=== PATIENT | female | born 1965 | race American Indian/Alaskan Native ===

== ENCOUNTER 2017-03-09 16:51 | Emergency (ER) | payer SELFPAY ==
[2017-03-09 18:48] LABS: Hematocrit 28.4 % (30.3-42.9); Hemoglobin 8.5 gm/dl (10.1-14.3); Mean Corpuscular HGB Conc 30 % (30-34); Mean Corpuscular Hemoglobin 24 pg (28-32); Mean Corpuscular Volume 81 fl (79-97); Platelet Count 242 K/mm3 (140-440); Red Cell Distribution Width 20.6 % (13.2-15.2)
[2017-03-09 19:04] LABS: Anion Gap 19 mmol/L; Blood Urea Nitrogen 4 mg/dL (7-17); Calcium 8.7 mg/dL (8.4-10.2); Carbon Dioxide 22 mmol/L (22-30); Chloride 102.8 mmol/L (98-107); Creatine Kinase 48 units/L (30-135); Glucose 66 mg/dL (65-100); Potassium 4.4 mmol/L (3.6-5.0); Sodium 139 mmol/L (137-145)
[2017-03-09 19:07] LABS: Creatine Kinase MB < 1.0 ng/mL (0.0-4.0)
[2017-03-09 19:31] LABS: Blastocytes % (Manual) 0 %; Eosinophils % (Manual) 0 % (0.0-4.3)
[2017-03-09 19:32] LABS: Anisocytosis 1+; Diff Status Complete; Hypochromasia 1+
[2017-03-09] MEDS ORDERED: MORPHINE IV ONE (22:08)
--- NOTE | 2017-03-09 22:12 | Emergency Department Report ---
HPI - General Chief Complaint: Syncope Time Seen by Provider: 03/09/17 21:58 - HPI HPI: This is a 51-year-old Afro-Mexican female presents to the emergency department from home with complaint of bilateral knee pain. The patient says that she had 2 syncopal episodes last week. The first one was when she was headed to the fridge and then woke up on the floor of the kitchen. The second time she was getting up from a table and woke up on the floor as well. She says that both times she thinks that she fell on her knees. Since that time he's had pain with the right greater than the left. She's been taking Aleve for her pain without much relief. She is able to ambulate but has to take baby steps and each time she walks the pain increases. She does not have a primary care physician. She denies any past medical history. She denies any chest pain, headache, vision change or any neurological deficits. No recent travel or sick contacts at home. ED Past Medical Hx - Past Medical History Hx Hypertension: Yes (NO MEDICATIONS) Hx Pulmonary Embolism: Yes (10 years ago) Additional medical history: Gastric bypass 2005 and developed a PE was on coumadin. But states no clots now - Surgical History Additional Surgical History: Gastric bypass. - Social History Smoking Status: Never Smoker Substance Use Type: Alcohol - Medications Home Medications: Home Medications Medication Instructions Recorded Confirmed Last Taken Type HYDROcodone/APAP 5-325 [Blum 1 each PO Q6HR PRN #12 tablet 03/10/17 Unknown Rx 5/325] ED Review of Systems ROS: Stated complaint: FALL / LT/RT KNEE PAIN/ Other details as noted in HPI Comment: All other systems reviewed and negative Constitutional: denies: chills, fever Eyes: denies: eye pain, eye discharge, vision change ENT: denies: ear pain, throat pain Respiratory: denies: cough, shortness of breath, wheezing Cardiovascular: syncope. denies: chest pain, palpitations Gastrointestinal: denies: abdominal pain, nausea, diarrhea Genitourinary: denies: urgency, dysuria, discharge Musculoskeletal: arthralgia. denies: back pain Skin: denies: rash, lesions Neurological: denies: headache, weakness, paresthesias Physical Exam - Physical Exam Vital Signs: Vital Signs 07/13/17 17:21 Temperature 97.4 F L Pulse Rate 99 H Respiratory 18 Rate Blood Pressure 144/91 O2 Sat by Pulse 98 Oximetry Physical Exam: GENERAL: The patient is well-developed well-nourished. HEENT: Normocephalic. Atraumatic. Extraocular motions are intact. Patient has moist mucous membranes. Pupils equal reactive to light bilaterally. No nystagmus. NECK: Supple. Trachea is midline. CHEST/LUNGS: Clear to auscultation. There is no respiratory distress noted. HEART/CARDIOVASCULAR: Regular. There is no tachycardia. There is no gallop rub or murmur. ABDOMEN: Abdomen is soft, nontender. Patient has normal bowel sounds. There is no abdominal distention. Obese habitus. SKIN: Skin is warm and dry. NEURO: The patient is awake, alert, and oriented. The patient is cooperative. The patient has no focal neurologic deficits. The patient has normal speech. MUSCULOSKELETAL: There is tenderness to palpation to the bilateral anterior knees. Negative anterior and posterior drawer test to the bilateral knees. No laxity with valgus or varus stress to the bilateral knees. There is no limitation range of motion. Neurovascularly intact. ED Course Vital Signs 03/09/17 17:21 Temperature 97.4 F L Pulse Rate 99 H Respiratory 18 Rate Blood Pressure 144/91 O2 Sat by Pulse 98 Oximetry ED Medical Decision Making - Lab Data Result diagrams: 03/09/17 18:15 03/09/17 18:15 - EKG Data -: EKG Interpreted by Me EKG shows normal: sinus rhythm, axis, intervals (prolonged MD interval intervening first-degree AV block), QRS complexes (Q waves to the anterior leads ), ST-T waves Rate: normal - EKG Data When compared to previous EKG there are: no significant change Interpretation: unchanged when compared t (08/12/2012) - Radiology Data Radiology results: report reviewed, image reviewed interpreted by me: X-ray of the bilateral knees shows severe degenerative joint disease and osteoarthritis CT of the head does not show any acute process including no hemorrhage, mass, shift, diffuse edema or skull fracture. - Medical Decision Making 51-year-old female presents to the emergency department with the complaint of bilateral knee pain and 2 episodes of syncope that occurred 1.5 weeks ago. On physical exam there is no focal, motor or sensory deficits in her cranial nerves are intact. EKG did not show any signs of ST elevation CA, ischemia or dysrhythmia. Labs are unremarkable and also do not show any etiology of the previous syncopal episodes. On physical exam the knees are tender to palpation but they do not appear unstable and there is no deformities. X-rays of the bilateral knee shows severe degenerative joint disease and osteoarthritis. She was given some pain medication and is feeling some improvement. The right knee was placed into a knee immobilizer and the left knee was placed into a Howard wrap. The patient was given crutches to help her with the weightbearing. She may need an MRI in the near future to rule out any tendon or ligament or meniscus damage as well as further evaluate her severe osteoarthritis. The patient was able to display the ability to ambulate within the emergency department using the Howard wrap, knee immobilizer and crutches. She was given pain medication for home and a referral for an orthopedist. She will return to the ER with any worsening of her symptoms or any acute distress. - Differential Diagnosis osteoarthritis, fracture, dislocation, tendon/ligament injury Critical Care Time: No Critical care attestation.: If time is entered above; I have spent that time in minutes in the direct care of this critically ill patient, excluding procedure time. ED Disposition Clinical Impression: Bilateral knee pain Qualifiers: Chronicity: acute Qualified Code(s): M25.561 - Pain in right knee Osteoarthritis of both knees Qualifiers: Osteoarthritis type: unspecified Qualified Code(s): M17.0 - Bilateral primary osteoarthritis of knee Syncope Qualifiers: Syncope type: unspecified Qualified Code(s): R55 - Syncope and collapse Disposition: DC-01 TO HOME OR SELFCARE Is pt being admited?: No Condition: Stable Instructions: Osteoarthritis (ED), Syncope (ED), Arthralgia (ED) Additional Instructions: Please follow-up with a orthopedist as soon as possible. I've given you a referral for a local orthopedist, Dr. Lau. I have also given you multiple referrals for primary care physicians. Return to the emergency department with any worsening of your symptoms or any acute distress. You've been prescribed a medication that is sedating. Therefore this medication cannot be mixed with alcohol, or taken prior to driving, working, or being responsible for children. Prescriptions: HYDROcodone/APAP 5-325 [Blum 5/325] 1 each PO Q6HR PRN #12 tablet PRN Reason: Pain Referrals: PRIMARY CARE, [Primary Care Provider] - 3-5 Days DEBORAH LO MD [Staff Physician] - 3-5 Days DANIELLE ANN MD [Staff Physician] - 3-5 Days JIMBO LAU MD [Staff Physician] - [facility] Forms: Work/School Release Form(ED) Time of Disposition: 00:31
[2017-03-09 22:17] VITALS: BP 133/46
--- NOTE | 2017-03-09 23:07 | Cat Scan Report ---
FINAL REPORT PROCEDURE: CT head without contrast. TECHNIQUE: Computerized tomography of the head was performed without contrast material. HISTORY: Syncope. COMPARISON: No prior studies are available for comparison. FINDINGS: The ventricles are normal in size. The blair matter and white matter appear normal. There are no mass lesions. There is no intracranial hemorrhage. There are no signs of acute infarction. The calvarium appears intact. The mastoid air cells and visualized paranasal sinuses are well aerated. IMPRESSION: Normal study.
--- NOTE | 2017-03-09 23:11 | XRay Report ---
FINAL REPORT PROCEDURE: Right and left knees. TECHNIQUE: Three views of each knee. HISTORY: Bilateral knee pain. COMPARISON: No prior studies are available for comparison. FINDINGS: Right knee: The bones appear intact without fracture or dislocation. There is moderate narrowing of the medial compartment of the knee joint. There is osteophyte formation in the distal femur and proximal tibia. There are some rounded calcifications posterior to the distal femur. These could represent synovial osteochondromas. There is no evidence of a knee effusion. Left knee: The bones appear intact without fracture or dislocation. There is severe narrowing of the medial compartment of the knee joint. There is prominent osteophyte formation in the distal femur and proximal tibia. The soft tissues are unremarkable. There is no evidence of a knee effusion. IMPRESSION: Bilateral osteoarthritis, left worse than right.
[2017-03-10] MEDS ORDERED: BENADRYL PO ONE ×2 (00:38→00:45)
== END 2017-03-10 01:00 | disposition home or self-care (01) ==
LOC: ED 16:51
DX: M17.0 Bilateral primary osteoarthritis of knee (principal); R55 Syncope and collapse; I10 Essential (primary) hypertension; I26.99 Other pulmonary embolism without acute cor pulmonale; W01.0XXA Fall on same level from slipping, tripping and stumbling without subsequent striking against object, initial encounter; Y93.89 Activity, other specified; Y99.8 Other external cause status; Y92.090 Kitchen in other non-institutional residence as the place of occurrence of the external cause
CPT/HCPCS: 29505; 36415; 70450; 73562; 80048; 82550; 82553; 83735; 84443; 84484; 85007; 85025; 93005; 93010; 96374; 99285; J2270

== ENCOUNTER 2018-03-08 15:02 | Inpatient (IN) | payer OTHER ==
[2018-03-08 16:11] LABS: Hemoglobin 6.7 gm/dl (10.1-14.3); Mean Corpuscular HGB Conc 30 % (30-34); Mean Corpuscular Volume 72 fl (79-97); Platelet Count 202 K/mm3 (140-440); Red Blood Count 3.05 M/mm3 (3.65-5.03)
[2018-03-08 16:13] LABS: Mean Corpuscular Hemoglobin 22 pg (28-32); Red Cell Distribution Width 21.5 % (13.2-15.2)
[2018-03-08 16:19] LABS: Eosinophils % (Auto) 1.9 % (0.0-4.3); Lymphocytes % (Auto) 43.3 % (13.4-35.0); Monocytes % (Auto) 11.3 % (0.0-7.3)
[2018-03-08 16:20] LABS: Basophils # (Auto) 0.1 K/mm3 (0.0-0.1); Basophils % (Auto) 1.7 % (0.0-1.8); Eosinophils # (Auto) 0.1 K/mm3 (0.0-0.4); Lymphocytes # (Auto) 1.7 K/mm3 (1.2-5.4); Monocytes # (Auto) 0.4 K/mm3 (0.0-0.8)
[2018-03-08 16:25] LABS: BUN/Creatinine Ratio 6; Blood Urea Nitrogen 3 mg/dL (7-17); Calcium 8.5 mg/dL (8.4-10.2); Hemolysis Index 0
[2018-03-08] MEDS ORDERED: NACL 0.9% 500 ML 500 ML IV ONE (16:25)
--- NOTE | 2018-03-08 16:25 | Emergency Department Report ---
Blank Doc - Documentation Documentation: Patient is 52 years old female with history of gastric bypass surgery in 2006 and pulmonary embolism. Patient presented to the ER complaining off generalized swelling, weakness and shortness of breath for the last 4 weeks. Patient stated that she had to quit her job recently because she cannot handle it anymore. Patient denied any chest pain, fever or cough. Patient is found to have a hemoglobin of 6.7. Patient will be best served in our main ED.
[2018-03-08 16:52] LABS: INR 1.08 (0.87-1.13); Partial Thromboplastin Time 33.6 Sec. (24.2-36.6)
[2018-03-08] MEDS ORDERED: SUBLIMAZE IV ONE (16:57)
--- NOTE | 2018-03-08 16:57 | Emergency Department Report ---
ED General Adult HPI - General Chief complaint: Extremity Injury, Lower Stated complaint: LEG SWELLING/PAIN Time Seen by Provider: 03/08/18 16:16 Source: patient, RN notes reviewed, old records reviewed Mode of arrival: Wheelchair Limitations: Physical Limitation - History of Present Illness Initial comments: This is a 52-year-old female, previously evaluated by me. Reports a history of gastric bypass, and pulmonary embolus. She has not followed up with her bariatric surgeon in over 2 years, and discontinued herself from iron sulfate supplementation secondary to constipation and also discontinued herself from multivitamin supplementation. She presents to the ER with a complaint of acute on chronic nontraumatic right-sided knee pain, bilateral lower extremity discoloration and swelling, shortness of breath and fatigue and malaise. She denies hematemesis and bright red blood per rectum. She denies menstruation over the past 2 years. She denies being . She reports stools are beige colored. The right knee pain is sharp and achy, does not radiate anywhere, increases with palpation and decreases with rest. The lower extremity swelling is nontraumatic does not radiate anywhere, does not appear to have exacerbating or relieving factors. The shortness of breath is nontraumatic, worsens with exertion, decreases with rest, and does not radiate anywhere. -: Gradual Location: right, lower extremity Radiation: non-radiation Quality: aching Consistency: intermittent Improves with: rest Worsens with: movement Associated Symptoms: malaise, shortness of breath, weakness. denies: confusion , chest pain, cough, diaphoresis, fever/chills, loss of appetite, nausea/ vomiting, rash, seizure, syncope - Related Data Previous Rx's Medication Instructions Recorded Last Taken Type HYDROcodone/APAP 5-325 [[place] 1 each PO Q6HR PRN #12 tablet 03/10/17 Unknown Rx 5/325] Allergies Allergy/AdvReac Type Severity Reaction Status Date / Time No Known Allergies Allergy Verified 03/09/17 17:19 ED Review of Systems ROS: Stated complaint: LEG SWELLING/PAIN Other details as noted in HPI Comment: All other systems reviewed and negative ED Past Medical Hx - Past Medical History Previous Medical History?: Yes Hx Hypertension: Yes (NO MEDICATIONS) Hx Pulmonary Embolism: Yes (10 years ago) Additional medical history: Gastric bypass 2005 and developed a PE was on coumadin. But states no clots now - Surgical History Past Surgical History?: Yes Additional Surgical History: Gastric bypass. - Social History Smoking Status: Never Smoker Substance Use Type: Alcohol, Prescribed - Medications Home Medications: Home Medications Medication Instructions Recorded Confirmed Last Taken Type HYDROcodone/APAP 5-325 [[place] 1 each PO Q6HR PRN #12 tablet 03/10/17 Unknown Rx 5/325] ED Physical Exam - General Limitations: No Limitations, Physical Limitation General appearance: alert, in no apparent distress, obese - Head Head exam: Present: atraumatic, normocephalic - Eye Eye exam: Present: normal appearance, EOMI - ENT ENT exam: Present: normal exam, normal orophraynx, mucous membranes moist, normal external ear exam - Neck Neck exam: Present: normal inspection, full ROM - Respiratory Respiratory exam: Present: normal lung sounds bilaterally. Absent: respiratory distress - Cardiovascular Cardiovascular Exam: Present: regular rate, normal rhythm. Absent: systolic murmur, diastolic murmur, rubs, gallop - GI/Abdominal GI/Abdominal exam: Present: soft, normal bowel sounds. Absent: distended, tenderness, guarding, rebound, rigid, pulsatile mass - Rectal Rectal exam: Present: normal inspection, normal rectal tone, heme (+) stool, other (escorted by nurse Jovita) - Extremities Exam Extremities exam: Present: normal inspection, full ROM, tenderness (there is reproducible right anterior knee tenderness, and right lateral knee tenderness on the lateral joint line and medial joint line. There is no laxity.), pedal edema, calf tenderness, other (2+ pulses noted in the bilateral upper, lower extremities. Compartments soft. Pelvis is stable.) - Back Exam Back exam: Present: normal inspection, full ROM. Absent: tenderness, CVA tenderness (R), paraspinal tenderness, vertebral tenderness - Neurological Exam Neurological exam: Present: alert, oriented X3, CN II-XII intact, other ( Extraocular movements intact. Tongue midline. No facial droop. Facial sensation intact to light touch in the V1, V2, V3 distribution bilaterally. 5 and 5 strength in 4 extremities.. Sensation is intact to light touch in 4 extremities.). Absent: motor sensory deficit - Psychiatric Psychiatric exam: Present: normal affect, normal mood - Skin Skin exam: Present: warm, dry, intact, normal color. Absent: rash ED Course Vital Signs 03/08/18 03/08/18 03/08/18 15:07 18:13 19:15 Temperature 97.8 F 97.7 F Pulse Rate 92 H 87 89 Respiratory 20 19 20 Rate Blood Pressure 125/72 Blood Pressure 126/74 114/66 [Right] O2 Sat by Pulse 97 99 99 Oximetry - Reevaluation(s) Reevaluation #1: 03/08/18 19:16 discussed with gastroenterology, Dr. Tian Ferreira, recommends nothing by mouth after midnight, indicates his group will see the patient in consultation tomorrow. ED Medical Decision Making - Lab Data Result diagrams: 03/08/18 15:38 03/08/18 15:38 Vital Signs 03/08/18 03/08/18 15:07 18:13 Temperature 97.8 F Pulse Rate 92 H 87 Respiratory 20 19 Rate Blood Pressure 125/72 Blood Pressure 126/74 [Right] O2 Sat by Pulse 97 99 Oximetry Lab Results 03/08/18 03/08/18 03/08/18 Range/Units 15:38 15:38 15:38 WBC 3.9 L (4.5-11.0) K/mm3 RBC 3.05 L (3.65-5.03) M/mm3 Hgb 6.7 L (10.1-14.3) gm/dl Hct 22.0 L (30.3-42.9) % MCV 72 L (79-97) fl MCH 22 L (28-32) pg MCHC 30 (30-34) % RDW 21.5 H (13.2-15.2) % Plt Count 202 (140-440) K/mm3 Lymph % (Auto) 43.3 H (13.4-35.0) % [place] % (Auto) 11.3 H (0.0-7.3) % Eos % (Auto) 1.9 (0.0-4.3) % Baso % (Auto) 1.7 (0.0-1.8) % Lymph # 1.7 (1.2-5.4) K/mm3 [place] # 0.4 (0.0-0.8) K/mm3 Eos # 0.1 (0.0-0.4) K/mm3 Baso # 0.1 (0.0-0.1) K/mm3 Seg Neutrophils % 41.8 (40.0-70.0) % Seg Neutrophils # 1.6 L (1.8-7.7) K/mm3 PT (12.2-14.9) Sec. INR (0.87-1.13) APTT (24.2-36.6) Sec. D-Dimer (0-234) ng/mlDDU Sodium 138 (137-145) mmol/L Potassium 4.0 (3.6-5.0) mmol/L Chloride 101.7 (98-107) mmol/L Carbon Dioxide 23 (22-30) mmol/L Anion Gap 17 mmol/L BUN 3 L (7-17) mg/dL Creatinine 0.5 L (0.7-1.2) mg/dL Estimated GFR > 60 ml/min BUN/Creatinine Ratio 6 % Glucose 95 (65-100) mg/dL Calcium 8.5 (8.4-10.2) mg/dL Troponin T < 0.010 (0.00-0.029) ng/mL NT-Pro-B Natriuret Pep 127.1 (0-900) pg/mL Blood Type Antibody Screen Crossmatch 03/08/18 03/08/18 03/08/18 Range/Units 15:38 16:29 16:36 WBC (4.5-11.0) K/mm3 RBC (3.65-5.03) M/mm3 Hgb (10.1-14.3) gm/dl Hct (30.3-42.9) % MCV (79-97) fl MCH (28-32) pg MCHC (30-34) % RDW (13.2-15.2) % Plt Count (140-440) K/mm3 Lymph % (Auto) (13.4-35.0) % [place] % (Auto) (0.0-7.3) % Eos % (Auto) (0.0-4.3) % Baso % (Auto) (0.0-1.8) % Lymph # (1.2-5.4) K/mm3 [place] # (0.0-0.8) K/mm3 Eos # (0.0-0.4) K/mm3 Baso # (0.0-0.1) K/mm3 Seg Neutrophils % (40.0-70.0) % Seg Neutrophils # (1.8-7.7) K/mm3 PT 14.6 (12.2-14.9) Sec. INR 1.08 (0.87-1.13) APTT 33.6 (24.2-36.6) Sec. D-Dimer 404.22 H (0-234) ng/mlDDU Sodium (137-145) mmol/L Potassium (3.6-5.0) mmol/L Chloride (98-107) mmol/L Carbon Dioxide (22-30) mmol/L Anion Gap mmol/L BUN (7-17) mg/dL Creatinine (0.7-1.2) mg/dL Estimated GFR ml/min BUN/Creatinine Ratio % Glucose (65-100) mg/dL Calcium (8.4-10.2) mg/dL Troponin T (0.00-0.029) ng/mL NT-Pro-B Natriuret Pep (0-900) pg/mL Blood Type A POSITIVE Antibody Screen Negative Crossmatch See Detail - EKG Data -: EKG Interpreted by Tn EKG shows normal: sinus rhythm - EKG Data 03/08/18 19:03 Sinus 93 beats per minute, normal axis, borderline prolonged AK interval, poor R -wave progression, motion artifact, not a STEMI, unchanged from prior from February 2017 - Radiology Data Radiology results: report reviewed, image reviewed LIVE [facility] OCTAVIO BACA [facility] 1965 [id number] 03/08/18 17:43 - Radiology Dept. Note by MINI CLEMENTE [facility] Num: [id number] : 1965 Patient Age: 52 BLE VENOUS DUPLEX COMPLETED. VAS LAB PRELIMINARY REPORT; NO EVIDENCE OF DVT/SVT NOTED IN VESSELS/SEGMENTS EXAMINED, BLE. BLE SOFT TISSUE CHANGES NOTED IN POP FOSSA. PHYSICIANS REPORT TO FOLLOW...(rSK) Initialized on 03/08/18 17:43 - END OF NOTE - Medical Decision Making Differential diagnosis, including but not limited to: Symptomatic anemia secondary to NSAID use secondary to chronic right-sided knee pain, DVT, pulmonary embolus Assessment and plan: 52-year-old female who endorses chronic NSAID use for chronic right knee pain, found to be symptomatically anemic with hemoglobin of 6.7, strongly guaiac positive stool, negative lower extremity DVT study, CT scan of the chest is pending, with no chest pain. Patient will be given Protonix and packed red blood cell transfusion. Hasn't had a colonoscopy within the past 10 years. Gastroenterology is paged. Dr. Turk, the hospital physician accepted the patient to the medical service for symptomatic anemia requiring packed red blood cell transfusion, and presumed GI bleed. Critical care time in (mins) excluding proc time.: 35 Critical care attestation.: If time is entered above; I have spent that time in minutes in the direct care of this critically ill patient, excluding procedure time. ED Disposition Clinical Impression: GI bleed, Symptomatic anemia, Arthritis of right knee Disposition: OP ADMIT IP TO THIS HOSP Is pt being admited?: Yes Condition: Good
--- NOTE | 2018-03-08 17:05 | XRay Report ---
FINAL REPORT PROCEDURE: Right knee. TECHNIQUE: Three views. HISTORY: Knee pain. COMPARISON: Bilateral knees 03/09/2017. FINDINGS: The bones appear intact without fracture or dislocation. There is severe narrowing of the medial compartment of the knee joint. Bone is touching bone. There is osteophyte formation. The soft tissues are unremarkable. There is no evidence of a knee effusion. There are some ovoid calcifications behind the knee joint which may represent synovial osteochondromas. IMPRESSION: Severe osteoarthritis, progressed since 2016.
--- NOTE | 2018-03-08 17:20 | XRay Report ---
FINAL REPORT PROCEDURE: Chest. TECHNIQUE: PA and lateral views. HISTORY: Shortness of breath . COMPARISON: No prior studies are available for comparison. FINDINGS: The heart and mediastinum appear normal. The lungs are clear and well expanded. There are no pleural effusions. The soft tissues and regional skeleton are unremarkable. IMPRESSION: Normal study.
[2018-03-08] MEDS ORDERED: PROTONIX IV ONE (18:54)
--- NOTE | 2018-03-08 19:03 | History and Physical Report ---
History of Present Illness Chief complaint: I feel weak, my knees hurt History of present illness: 52 YO Female with HTN, Obesity, History of PE (10 years ago), Noncompliant with Iron replacement therapy, presents to ED. Pt states that she has experienced right knee pain over the past 6 months, as well as generalized weakness over the past 1 month. Pt seen and evaluated in ED and found to have evidence of GI bleeding with blood loss anemia, as well as obesity hypoventilation. GI consulted in ED. Pt admitted to medical floor. Pt denies fever, chills, CP, Palpitations, NVD, syncope, hemoptysis, unintentional weight loss, unilateral leg swelling, calf pain. Pt acknowledges daily NSAID use. Pt lost to outpatient f/u with bariatric surgeon. Pt admitted to medical floor. GI consulted in ED. Past History Past Medical History: hypertension, pulmonary embolism Past Surgical History: Other (gastric bypass) Social history: single Family history: hypertension Medications and Allergies Allergies Allergy/AdvReac Type Severity Reaction Status Date / Time No Known Allergies Allergy Verified 03/09/17 17:19 Home Medications Medication Instructions Recorded Confirmed Last Taken Type HYDROcodone/APAP 5-325 [[place] 1 each PO Q6HR PRN #12 tablet 03/10/17 Unknown Rx 5/325] Review of Systems Constitutional: weakness, malaise, no weight loss, no weight gain, no fever, no chills Ears, nose, mouth and throat: no ear pain, no ear discharge, no tinnitis, no decreased hearing, no nose pain Breasts: no change in shape, no swelling, no mass Cardiovascular: no chest pain, no orthopnea, no palpitations, no edema, no syncope Respiratory: no cough, no cough with sputum, no excessive sputum, no shortness of breath Gastrointestinal: no nausea, no vomiting, no diarrhea, no constipation, no change in bowel habits Genitourinary Female: no pelvic pain, no flank pain, no menorrhagia, no stress incontinence, no post void dribbling, no incomplete emptying, no urge incontinence Rectal: no pain, no incontinence, no bleeding Musculoskeletal: no neck stiffness, no neck pain, no shooting arm pain, no arm numbness/tingling, no low back pain, no shooting leg pain, no leg numbness/ tingling Integumentary: no rash, no pruritis, no redness, no sores, no wounds Neurological: weakness, no tingling, no seizures, no syncope, no tremors, no ataxia, no lack of coordination Psychiatric: no anxiety, no memory loss, no change in sleep habits, no sleep disturbances, no insomnia, no hypersomnia Endocrine: no cold intolerance, no heat intolerance, no polyphagia, no excessive thirst Hematologic/Lymphatic: no easy bruising, no easy bleeding, no lymphadenopathy, no lymphedema Allergic/Immunologic: no urticaria, no allergic rhinitis, no wheezing, no persistent infections, no anaphylaxis, no angioedema Exam - Constitutional Vitals: Temp Pulse Resp BP Pulse Ox 97.8 F 87 19 126/74 99 03/08/18 15:07 03/08/18 18:13 03/08/18 18:13 03/08/18 18:13 03/08/18 18:13 General appearance: Present: mild distress, obese - EENT Eyes: Present: PERRL ENT: hearing intact, clear oral mucosa - Neck Neck: Present: supple, normal ROM - Respiratory Respiratory effort: normal Respiratory: bilateral: CTA - Cardiovascular Heart Sounds: Present: S1 & S2. Absent: rub, click - Extremities Extremities: pulses symmetrical, No edema Peripheral Pulses: within normal limits - Abdominal General gastrointestinal: Present: soft, non-tender, non-distended, normal bowel sounds Female genitourinary: Present: normal - Integumentary Integumentary: Present: clear, warm, dry - Musculoskeletal Musculoskeletal: gait normal, strength equal bilaterally - Psychiatric Psychiatric: appropriate mood/affect, intact judgment & insight - Neurologic Neurologic: CNII-XII intact, moves all extremities Results - Labs CBC & Chem 7: 03/08/18 15:38 03/08/18 15:38 Labs: Abnormal lab results 03/08/18 03/08/18 03/08/18 Range/Units 15:38 15:38 15:38 WBC 3.9 L (4.5-11.0) K/mm3 RBC 3.05 L (3.65-5.03) M/mm3 Hgb 6.7 L (10.1-14.3) gm/dl Hct 22.0 L (30.3-42.9) % MCV 72 L (79-97) fl MCH 22 L (28-32) pg RDW 21.5 H (13.2-15.2) % Lymph % (Auto) 43.3 H (13.4-35.0) % [place] % (Auto) 11.3 H (0.0-7.3) % Seg Neutrophils # 1.6 L (1.8-7.7) K/mm3 D-Dimer 404.22 H (0-234) ng/mlDDU BUN 3 L (7-17) mg/dL Creatinine 0.5 L (0.7-1.2) mg/dL Crossmatch 03/08/18 Range/Units 16:36 WBC (4.5-11.0) K/mm3 RBC (3.65-5.03) M/mm3 Hgb (10.1-14.3) gm/dl Hct (30.3-42.9) % MCV (79-97) fl MCH (28-32) pg RDW (13.2-15.2) % Lymph % (Auto) (13.4-35.0) % [place] % (Auto) (0.0-7.3) % Seg Neutrophils # (1.8-7.7) K/mm3 D-Dimer (0-234) ng/mlDDU BUN (7-17) mg/dL Creatinine (0.7-1.2) mg/dL Crossmatch See Detail Assessment and Plan - Patient Problems (1) GI bleed Current Visit: Yes Status: Acute Qualifiers: GI bleed type/associated pathology: anorectal hemorrhage Qualified Code(s) : K62.5 - Hemorrhage of anus and rectum Plan to address problem: PRBC Transfusion, PPI therapy, GI consulted for further evaluation, serial cbc, supportive care. (2) Obesity hypoventilation syndrome Current Visit: Yes Status: Acute Plan to address problem: supplemental oxygen, nebulizer therapy, NIPPV as clinically indicated, ambulate TID and prn (3) Symptomatic anemia Current Visit: Yes Status: Acute Plan to address problem: PRBC transfusion, monitor hgb, iron replacement therapy (4) DVT prophylaxis Current Visit: Yes Status: Acute Plan to address problem: SCD to ble while in bed.
[2018-03-08] MEDS ORDERED: PROVENTIL IH PRN (19:07)
[2018-03-08] MEDS ORDERED: ZOFRAN IV PRN (19:07)
[2018-03-08] MEDS ORDERED: SODIUM CHLORIDE FLUSH SYRINGE 10 ML IV PRN (19:07)
--- NOTE | 2018-03-08 20:23 | Cat Scan Report ---
FINAL REPORT PROCEDURE: CT angiogram chest with contrast. TECHNIQUE: Computerized tomographic angiography of the chest was performed after the IV injection of iodinated nonionic contrast including image processing. The image data was postprocessed using 2-dimensional multiplanar reformatted (MPR) and 3-dimensional (MIP and/or volume rendered) techniques. HISTORY: Dyspnea. COMPARISON: No prior studies are available for comparison. FINDINGS: The trachea and central bronchi appear normal. The left lung is clear and well expanded. There is a tiny nodule in the right lower lobe contiguous with the major fissure. This is seen on image 65 of series 2. This nodule is not highly suspicious and measures only 4.3 millimeters in maximum dimension. A follow-up study could be done to look for stability or resolution. The thoracic aorta has a normal caliber without evidence of dissection. The pulmonary arteries enhance normally. There are no filling defects to suggest pulmonary embolism. There is no mediastinal adenopathy. The heart size is normal. There are no pleural effusions. The adrenal glands are not enlarged. The thoracic skeleton appears intact. IMPRESSION: No evidence of pulmonary embolism. Tiny nodule in the right lower lobe.
[2018-03-08] MEDS: PROTONIX IV SCH (22:35)
[2018-03-08] MEDS: SODIUM CHLORIDE FLUSH SYRINGE 10 ML IV SCH (22:36)
[2018-03-08] MEDS ORDERED: NACL 0.9% 500 ML 500 ML ONE (23:33)
[2018-03-08] MEDS: BENADRYL IV PRN (23:51)
[2018-03-09] MEDS: TYLENOL PO PRN (07:56)
[2018-03-09] MEDS: BENADRYL IV PRN ×2 (07:56→17:04)
[2018-03-09 09:05] LABS: Hematocrit 23.8 % (30.3-42.9); Hemoglobin 7.3 gm/dl (10.1-14.3); Mean Corpuscular HGB Conc 31 % (30-34); Mean Corpuscular Hemoglobin 23 pg (28-32); Mean Corpuscular Volume 74 fl (79-97); Platelet Count 154 K/mm3 (140-440); Red Blood Count 3.22 M/mm3 (3.65-5.03); Red Cell Distribution Width 22.1 % (13.2-15.2)
--- NOTE | 2018-03-09 09:11 | Gastroenterology Consultation ---
<HALINA CARRILLO - Last Filed: 03/09/18 09:13> History of Present Illness - Reason for Consult Consult date: 03/09/18 anemia Requesting physician: TIMMY CALI - History of Present Illness Patient is a 52 y/o female with PMH of HTN, morbid obesity, h/o PE several years ago (not on anticoagulation currently), s/p gastric bypass (2005), and medication non-compliance (took self off iron supplement and daily MVI due to constipation with no f/u with bariatric surgeon in 2 years) who presented to ED with c/o right knee pain associated with arthritis, discoloration/swelling of BLE, SOB, and generalized weakness/fatigue. Lower extremity DVT study negative. Chest CTA negative for PE. She was found to be anemic upon admission with H/H 6.7/22.0 with stool occult positive to which GI has been consulted. This morning patient was resting in bed w/o acute distress. SOB improved. No hematemesis, melena, or hematochezia. Last BM yesterday with brown stool. Admits to regurgitation of food after meals since gastric bypass but denies wt loss, CP, dizziness, abd pain, N/V, dysphagia, odynophagia, diarrhea, or constipation. Takes Aleve and Ibuprofen daily. No known hx of PUD. She is unsure if she has ever had an EGD, but is sure she has not undergone one since 2005. No previous colonoscopy. No Fhx of GI cancers. No menstruation over the past 2 years. Past History Past Medical History: hypertension, pulmonary embolism, other (morbid obesity) Past Surgical History: Other (gastric bypass) Social history: single Family history: hypertension Medications and Allergies Allergies Allergy/AdvReac Type Severity Reaction Status Date / Time No Known Allergies Allergy Verified 03/09/17 17:19 Home Medications Medication Instructions Recorded Confirmed Last Taken Type HYDROcodone/APAP 5-325 [[place] 1 each PO Q6HR PRN #12 tablet 03/10/17 Unknown Rx 5/325] Active Meds: Active Medications Acetaminophen (Tylenol) 650 mg PO Q4H PRN PRN Reason: Pain MILD(1-3)/Fever >100.5/JAVED Last Admin: 03/09/18 07:56 Dose: 650 mg Albuterol (Proventil) 2.5 mg IH Q4HRT PRN PRN Reason: Shortness Of Breath Diphenhydramine HCl (Benadryl) 25 mg IV Q6H PRN PRN Reason: Itching Last Admin: 03/09/18 07:56 Dose: 25 mg Ferrous Sulfate (Feosol) 325 mg PO BID [facility] Ondansetron HCl (Zofran) 4 mg IV Q8H PRN PRN Reason: Nausea And Vomiting Pantoprazole Sodium (Protonix) 40 mg IV BID [facility] Last Admin: 03/08/18 22:35 Dose: 40 mg Sodium Chloride (Sodium Chloride Flush Syringe 10 Ml) 10 ml IV BID [facility] Last Admin: 03/08/18 22:36 Dose: 10 ml Sodium Chloride (Sodium Chloride Flush Syringe 10 Ml) 10 ml IV PRN PRN PRN Reason: LINE FLUSH Review of Systems - Review of Systems All systems: negative Constitutional: weakness Musculoskeletal: other (right knee pain) Exam - Constitutional Vital Signs: Temp Pulse Resp BP Pulse Ox 98.5 F 89 18 154/89 99 03/09/18 02:55 03/09/18 02:55 03/09/18 02:55 03/09/18 02:55 03/09/18 02:55 General appearance: no acute distress, obese (morbid) - EENT Eyes: PERRL, EOM intact ENT: hearing intact - Respiratory Respiratory: bilateral: CTA (anterior) - Cardiovascular Rhythm: regular Heart Sounds: Present: S1 & S2 - Gastrointestinal General gastrointestinal: Present: soft, non-tender, non-distended, normal bowel sounds, other (obese) - Integumentary Integumentary: Present: warm, dry - Neurologic Neurological: alert and oriented x3 - Labs CBC & Chem 7: 03/09/18 08:33 03/08/18 15:38 Lab Results: Laboratory Results - last 24 hr 03/08/18 03/08/18 03/08/18 15:38 15:38 15:38 WBC 3.9 L RBC 3.05 L Hgb 6.7 L Hct 22.0 L MCV 72 L MCH 22 L MCHC 30 RDW 21.5 H Plt Count 202 Lymph % (Auto) 43.3 H [place] % (Auto) 11.3 H Eos % (Auto) 1.9 Baso % (Auto) 1.7 Lymph # 1.7 [place] # 0.4 Eos # 0.1 Baso # 0.1 Seg Neutrophils % 41.8 Seg Neutrophils # 1.6 L PT INR APTT D-Dimer Sodium 138 Potassium 4.0 Chloride 101.7 Carbon Dioxide 23 Anion Gap 17 BUN 3 L Creatinine 0.5 L Estimated GFR > 60 BUN/Creatinine Ratio 6 Glucose 95 Calcium 8.5 Troponin T < 0.010 NT-Pro-B Natriuret Pep 127.1 Blood Type Antibody Screen Crossmatch 03/08/18 03/08/18 03/08/18 15:38 16:29 16:36 WBC RBC Hgb Hct MCV MCH MCHC RDW Plt Count Lymph % (Auto) [place] % (Auto) Eos % (Auto) Baso % (Auto) Lymph # [place] # Eos # Baso # Seg Neutrophils % Seg Neutrophils # PT 14.6 INR 1.08 APTT 33.6 D-Dimer 404.22 H Sodium Potassium Chloride Carbon Dioxide Anion Gap BUN Creatinine Estimated GFR BUN/Creatinine Ratio Glucose Calcium Troponin T NT-Pro-B Natriuret Pep Blood Type A POSITIVE Antibody Screen Negative Crossmatch See Detail 03/09/18 08:33 WBC 4.5 RBC 3.22 L Hgb 7.3 L Hct 23.8 L MCV 74 L MCH 23 L MCHC 31 RDW 22.1 H Plt Count 154 Lymph % (Auto) [place] % (Auto) Eos % (Auto) Baso % (Auto) Lymph # [place] # Eos # Baso # Seg Neutrophils % Seg Neutrophils # PT INR APTT D-Dimer Sodium Potassium Chloride Carbon Dioxide Anion Gap BUN Creatinine Estimated GFR BUN/Creatinine Ratio Glucose Calcium Troponin T NT-Pro-B Natriuret Pep Blood Type Antibody Screen Crossmatch Assessment and Plan 1.anemia 2.h/o gastric bypass -stool occult positive -INR 1.08 -HGB 7.3-s/p transfusion 1 unit PRBCs -continue to monitor H/H and transfuse as needed -hold blood thinning medications -no active signs of bleeding-HD stable -etiology unclear -will schedule for EGD/colonoscopy for further evaluation in am -clear liquids today then NPO after MN -iron studies in am -continue PPI and supportive care -will follow <KAELA CHIRINOS - Last Filed: 03/09/18 10:59> Medications and Allergies Active Meds: Active Medications Acetaminophen (Tylenol) 650 mg PO Q4H PRN PRN Reason: Pain MILD(1-3)/Fever >100.5/JAVED Last Admin: 03/09/18 07:56 Dose: 650 mg Albuterol (Proventil) 2.5 mg IH Q4HRT PRN PRN Reason: Shortness Of Breath Diphenhydramine HCl (Benadryl) 25 mg IV Q6H PRN PRN Reason: Itching Last Admin: 03/09/18 07:56 Dose: 25 mg Ferrous Sulfate (Feosol) 325 mg PO BID [facility] Last Admin: 03/09/18 09:54 Dose: 325 mg Ondansetron HCl (Zofran) 4 mg IV Q8H PRN PRN Reason: Nausea And Vomiting Pantoprazole Sodium (Protonix) 40 mg IV BID [facility] Last Admin: 03/09/18 09:55 Dose: 40 mg Sodium Chloride (Sodium Chloride Flush Syringe 10 Ml) 10 ml IV BID [facility] Last Admin: 03/09/18 09:55 Dose: 10 ml Sodium Chloride (Sodium Chloride Flush Syringe 10 Ml) 10 ml IV PRN PRN PRN Reason: LINE FLUSH Exam - Constitutional Vital Signs: Temp Pulse Resp BP Pulse Ox 98.5 F 89 18 154/89 99 03/09/18 02:55 03/09/18 02:55 03/09/18 02:55 03/09/18 02:55 03/09/18 02:55 - Labs CBC & Chem 7: 03/09/18 08:33 03/08/18 15:38 Lab Results: Laboratory Results - last 24 hr 03/08/18 03/08/18 03/08/18 15:38 15:38 15:38 WBC 3.9 L RBC 3.05 L Hgb 6.7 L Hct 22.0 L MCV 72 L MCH 22 L MCHC 30 RDW 21.5 H Plt Count 202 Lymph % (Auto) 43.3 H [place] % (Auto) 11.3 H Eos % (Auto) 1.9 Baso % (Auto) 1.7 Lymph # 1.7 [place] # 0.4 Eos # 0.1 Baso # 0.1 Seg Neutrophils % 41.8 Seg Neutrophils # 1.6 L PT INR APTT D-Dimer Sodium 138 Potassium 4.0 Chloride 101.7 Carbon Dioxide 23 Anion Gap 17 BUN 3 L Creatinine 0.5 L Estimated GFR > 60 BUN/Creatinine Ratio 6 Glucose 95 Calcium 8.5 Troponin T < 0.010 NT-Pro-B Natriuret Pep 127.1 Blood Type Antibody Screen Crossmatch 03/08/18 03/08/18 03/08/18 15:38 16:29 16:36 WBC RBC Hgb Hct MCV MCH MCHC RDW Plt Count Lymph % (Auto) [place] % (Auto) Eos % (Auto) Baso % (Auto) Lymph # [place] # Eos # Baso # Seg Neutrophils % Seg Neutrophils # PT 14.6 INR 1.08 APTT 33.6 D-Dimer 404.22 H Sodium Potassium Chloride Carbon Dioxide Anion Gap BUN Creatinine Estimated GFR BUN/Creatinine Ratio Glucose Calcium Troponin T NT-Pro-B Natriuret Pep Blood Type A POSITIVE Antibody Screen Negative Crossmatch See Detail 03/09/18 08:33 WBC 4.5 RBC 3.22 L Hgb 7.3 L Hct 23.8 L MCV 74 L MCH 23 L MCHC 31 RDW 22.1 H Plt Count 154 Lymph % (Auto) [place] % (Auto) Eos % (Auto) Baso % (Auto) Lymph # [place] # Eos # Baso # Seg Neutrophils % Seg Neutrophils # PT INR APTT D-Dimer Sodium Potassium Chloride Carbon Dioxide Anion Gap BUN Creatinine Estimated GFR BUN/Creatinine Ratio Glucose Calcium Troponin T NT-Pro-B Natriuret Pep Blood Type Antibody Screen Crossmatch Impression/Plan - Impression Impression: The patient was seen and examined personally. The GI care plan as outlined above by Halina Carrillo NP was discussed with patient. EGD and colonoscopy tomorrow.
[2018-03-09] MEDS ORDERED: GOLYTELY PO ONE (09:27)
[2018-03-09] MEDS: FEOSOL PO SCH ×2 (09:54→22:23)
[2018-03-09] MEDS: SODIUM CHLORIDE FLUSH SYRINGE 10 ML IV SCH ×2 (09:55→22:23)
[2018-03-09] MEDS: PROTONIX IV SCH ×2 (09:55→22:23)
[2018-03-09] MEDS ORDERED: VISTARIL PO PRN (12:11)
--- NOTE | 2018-03-09 14:32 | Progress Note ---
Assessment and Plan /GI bleed Status post 1 unit PRBC Transfusion, Continue PPI therapy, serial cbc, supportive care. GI consulted for further evaluation, Plan for EGD and colonoscopy tomorrow /Hypertension, stable Monitor BP, will give hydralazine IV as needed /Symptomatic anemia, due to GI bleed Status post PRBC transfusion, monitor hgb, iron replacement therapy / History of gastric bypass, supportive care / DVT prophylaxism: SCD to ble while in bed. Brief History: Patient is a 52 y/o female with PMH of HTN, morbid obesity, h/o PE several years ago (not on anticoagulation currently), s/p gastric bypass (2005), and medication non-compliance (took self off iron supplement and daily MVI due to constipation with no f/u with bariatric surgeon in 2 years) who presented to ED with c/o right knee pain associated with arthritis, discoloration/swelling of BLE, SOB, and generalized weakness/fatigue. Lower extremity DVT study negative. Chest CTA negative for PE. She was found to be anemic upon admission with H/H 6.7/22.0 with stool occult positive Radiological data: Lower extremity venous Doppler CTA chest Hospitalist Physical exam: GENERAL: well-developed female lying on bed appeared to be in no discomfort. HEENT: Normocephalic. Atraumatic. No conjunctival congestion or icterus. Patient has moist mucous membranes. NECK: Supple. Trachea midline. CHEST/LUNGS: Clear to auscultated bilaterally, breathing nonlabored. No wheezes crackles or rhonchi. HEART/CARDIOVASCULAR: Regular in rate and rhythm. S1 and S2 positive. ABDOMEN: Abdomen is soft, nontender. Patient has normal bowel sounds. SKIN: There is no rash. Warm and dry. NEURO: No focal motor deficit. Follows command. MUSCULOSKELETAL: No joint effusion or tenderness. EXTRIMITY: No edema, no cyanosis or clubbing. PSYCH: Cooperative. Subjective Date of service: 03/09/18 Interval history: Patient seen and examined. Medical records and medication list reviewed. No acute event overnight noted by the RN. Patient denies any chest pain or difficulty breathing. Patient is tolerating clear liquid diet. Discussed plan of care at bedside with patient. Objective - Constitutional Vitals: Vital Signs - 12hr 03/09/18 03/09/18 03/09/18 02:50 02:55 11:40 Temperature 98.5 F 97.3 F L Pulse Rate 89 89 85 Respiratory 18 20 Rate Blood Pressure 154/89 154/89 140/76 O2 Sat by Pulse 98 99 98 Oximetry - Labs CBC & Chem 7: 03/09/18 08:33 03/08/18 15:38 Labs: Abnormal lab results 03/08/18 03/08/18 03/08/18 Range/Units 15:38 15:38 15:38 WBC 3.9 L (4.5-11.0) K/mm3 RBC 3.05 L (3.65-5.03) M/mm3 Hgb 6.7 L (10.1-14.3) gm/dl Hct 22.0 L (30.3-42.9) % MCV 72 L (79-97) fl MCH 22 L (28-32) pg RDW 21.5 H (13.2-15.2) % Lymph % (Auto) 43.3 H (13.4-35.0) % [place] % (Auto) 11.3 H (0.0-7.3) % Seg Neutrophils # 1.6 L (1.8-7.7) K/mm3 D-Dimer 404.22 H (0-234) ng/mlDDU BUN 3 L (7-17) mg/dL Creatinine 0.5 L (0.7-1.2) mg/dL Crossmatch 03/08/18 03/09/18 Range/Units 16:36 08:33 WBC (4.5-11.0) K/mm3 RBC 3.22 L (3.65-5.03) M/mm3 Hgb 7.3 L (10.1-14.3) gm/dl Hct 23.8 L (30.3-42.9) % MCV 74 L (79-97) fl MCH 23 L (28-32) pg RDW 22.1 H (13.2-15.2) % Lymph % (Auto) (13.4-35.0) % [place] % (Auto) (0.0-7.3) % Seg Neutrophils # (1.8-7.7) K/mm3 D-Dimer (0-234) ng/mlDDU BUN (7-17) mg/dL Creatinine (0.7-1.2) mg/dL Crossmatch See Detail
[2018-03-09] MEDS ORDERED: DIFLUCAN PO ONE (21:49)
[2018-03-10] MEDS: BENADRYL IV PRN (00:49)
[2018-03-10 06:11] LABS: Hemoglobin 6.2 gm/dl (10.1-14.3); Mean Corpuscular HGB Conc 31 % (30-34); Mean Corpuscular Volume 74 fl (79-97); Platelet Count 149 K/mm3 (140-440); Red Blood Count 2.72 M/mm3 (3.65-5.03)
[2018-03-10 06:16] LABS: Mean Corpuscular Hemoglobin 23 pg (28-32); Red Cell Distribution Width 22.1 % (13.2-15.2)
[2018-03-10 06:34] LABS: Iron 84 ug/dL (37-170); Total Iron Binding Capacity 240 mcg/dL (250-450)
[2018-03-10 07:04] LABS: Basophils % (Manual) 0 % (0.0-1.8); Eosinophils % (Manual) 0 % (0.0-4.3); Total Cells Counted 100
[2018-03-10 07:13] LABS: Anisocytosis 1+; Hypochromasia 1+; Platelet Estimate Consistent w Auto; Sickle Cells 1+
[2018-03-10] MEDS ORDERED: NACL 0.9% 500 ML 500 ML IV ONE ×2 (07:21→14:00)
[2018-03-10] MEDS ORDERED: WATER FOR IRRIG STERILE ONE (08:11)
[2018-03-10] MEDS ORDERED: WATER FOR IRRIG STERILE IR ONE (08:11)
[2018-03-10] MEDS ORDERED: DIPRIVAN 10 MG/ML IV ONE ×2 (08:13)
--- NOTE | 2018-03-10 08:14 | Anesthesia Day of Surgery ---
Anesthesia Day of Surgery - Day of Surgery Patient Examined: Yes Patient H&P Reviewed: Yes Patient is NPO: Yes
--- NOTE | 2018-03-10 08:14 | Anesthesia Consultation ---
Anesthesia Consult and Med Hx Date of service: 03/10/18 - Airway Anesthetic Teeth Evaluation: Good ROM Head & Neck: Adequate Mental/Hyoid Distance: Adequate Mallampati Class: Class II Intubation Access Assessment: Probably Good - Pre-Operative Health Status ASA Pre-Surgery Classification: ASA3 Proposed Anesthetic Plan: MAC - Pulmonary Hx Pneumonia: No - Cardiovascular System Hx Hypertension: Yes - Hematic Hx Anemia: Yes - Other Systems Hx Obesity: Yes
[2018-03-10] MEDS ORDERED: XYLOCAINE MPF 2% ONE (08:30)
--- NOTE | 2018-03-10 08:48 | Post Operative Note ---
Pre-op diagnosis: iron deficiency anemia Post-op diagnosis: same (erosive gastritis, post-bypass anatomy with normal small bowel; internal hemorrhoids) Findings: 1. EGD: erosive gastritis in gastric pouch. normal post-gastric bypass anatomy with normal small bowel and no bleed Colonoscopy: internal hemorrhoids, otherwise unremarkable Procedure: 1. EGD 2. Colonoscopy Anesthesia: MAC Surgeon: SAM PITTMAN Estimated blood loss: none Pathology: none Condition: stable Disposition: floor
--- NOTE | 2018-03-10 08:57 | Operative Report ---
Operative Report Operative Report: Esophagogastroduodenoscopy Procedure Note Date of procedure: 03/10/2018 Endoscopist: Chuy Bustamante Pre-op diagnosis: iron deficiency anemia Post-op diagnosis: erosive gastritis in gastric pouch; post-gastric bypass anatomy Anesthesia: MAC Complications: No immediate complications Estimated blood loss: none Procedure: After consent was obtained, the patient was placed in the left lateral decubitus position. The [employer] endoscope was inserted into the patient 's mouth under direct vision, and advanced into the gastric pouch, and traversed through efferent limb with ~40 cm visualization of small bowel. The patient tolerated the procedure well. The views of the mucosa were good. Patient's vital signs were monitored continuously throughout the procedure. Findings: The esophagus appeared normal There was erosive gastritis in the gastric pouch. There were areas there were friable to touch, but no high risk bleeding stigmata or treatable lesions. There was normal post-anatomy related to gastric bypass. The efferent small bowel limb was traversed and appeared normal throughout the visualized portion ( bile, with no blood) Impression: 1. Erosive gastritis 2. Post-gastric bypass anatomy Recommendations: -continue PPI BID dosing -avoid NSAID medications -colonoscopy to follow
--- NOTE | 2018-03-10 09:00 | Operative Report ---
Operative Report Operative Report: Colonoscopy Procedure Note Date of procedure: 03/10/2018 Endoscopist: Chuy Bustamante Pre-op diagnosis: Iron deficiency anemia Post-op diagnosis: internal hemorrhoids, otherwise no significant findings Anesthesia: MAC Complications: No immediate complications Estimated blood loss: none Procedure: After consent was obtained, the patient was placed in the left lateral decubitus position. The fujinon colonoscope was inserted into the patient's rectum under direct vision, and advanced to the cecum without difficulty. The patient tolerated the procedure well. The views of the mucosa were fair. The quality of prep was fair (adequate for diagnostic purposes). The patient's vital signs were monitored continuously throughout the procedure. Findings: Internal hemorrhoids were visualized on retroflexion view. There was light brown mixed with dark appearing stool throughout the colon (pt on iron supplements as well). Views were adequate for diagnostic purposes, however unable to rule out small polyps. No obvious source of iron deficiency anemia identified during procedure. Impression: 1. Fair prep, adequate for diagnostic purposes 2. Internal hemorrhoids Recommendations: -anemia likely contributed by gastric bypass anatomy and erosive gastritis -cont iron supplements (may require IV iron as oral iron likely is inadequate absorbed given anatomy) -avoid nsaid medications
--- NOTE | 2018-03-10 10:28 | Post Anesthesia Evaluation ---
- Post Anesthesia Evaluation Patient Participated: Yes Airway Patent: Yes Stable Respiratory Function: Yes Temp > 96.8F: Yes Pain Manageable: Yes Adequeate Hydration: Yes Anesthesia Complications: No
[2018-03-10 10:31] LABS: Hematocrit 23.5 % (30.3-42.9)
[2018-03-10] MEDS: FEOSOL PO SCH ×2 (14:16→21:13)
[2018-03-10] MEDS: PROTONIX IV SCH ×2 (14:17→21:14)
[2018-03-10] MEDS: SODIUM CHLORIDE FLUSH SYRINGE 10 ML IV SCH ×2 (14:17→21:14)
--- NOTE | 2018-03-10 14:38 | Progress Note ---
Assessment and Plan /GI bleed Status post 1 unit PRBC Transfusion, Continue PPI therapy, serial cbc, supportive care. GI consulted for further evaluation, s/p EGD and colonoscopy today /Hypertension, stable Monitor BP, will give hydralazine IV as needed /Symptomatic anemia, due to GI bleed likely due to erosive gastritis Status post 1 unit PRBC transfusion, Hb again dropped today, will transfuse another unit monitor hgb, iron replacement therapy / History of gastric bypass, supportive care / DVT prophylaxism: SCD to ble while in bed. Brief History: Patient is a 52 y/o female with PMH of HTN, morbid obesity, h/o PE several years ago (not on anticoagulation currently), s/p gastric bypass (2005), and medication non-compliance (took self off iron supplement and daily MVI due to constipation with no f/u with bariatric surgeon in 2 years) who presented to ED with c/o right knee pain associated with arthritis, discoloration/swelling of BLE, SOB, and generalized weakness/fatigue. Lower extremity DVT study negative. Chest CTA negative for PE. She was found to be anemic upon admission with H/H 6.7/22.0 with stool occult positive Radiological data: Lower extremity venous Doppler CTA chest Hospitalist Physical exam: GENERAL: well-developed female lying on bed appeared to be in no discomfort. HEENT: Normocephalic. Atraumatic. No conjunctival congestion or icterus. Patient has moist mucous membranes. NECK: Supple. Trachea midline. CHEST/LUNGS: Clear to auscultated bilaterally, breathing nonlabored. No wheezes crackles or rhonchi. HEART/CARDIOVASCULAR: Regular in rate and rhythm. S1 and S2 positive. ABDOMEN: Abdomen is soft, nontender. Patient has normal bowel sounds. SKIN: There is no rash. Warm and dry. NEURO: No focal motor deficit. Follows command. MUSCULOSKELETAL: No joint effusion or tenderness. EXTRIMITY: No edema, no cyanosis or clubbing. PSYCH: Cooperative. Subjective Date of service: 03/10/18 Interval history: Patient seen and examined. Medical records and medication list reviewed. No acute event overnight noted by the RN. s/p EGD and colonoscopy today, Hb dropped to Discussed plan of care at bedside with patient. Objective - Constitutional Vitals: Vital Signs - 12hr 03/10/18 03/10/18 03/10/18 06:23 07:55 08:10 Temperature 98.5 F Pulse Rate 91 H 83 Respiratory 18 15 Rate Blood Pressure 141/65 119/52 O2 Sat by Pulse 96 100 96 Oximetry 03/10/18 03/10/18 03/10/18 08:41 08:56 11:54 Temperature 98.6 F 98.3 F Pulse Rate 96 H 96 H 76 Respiratory 20 19 19 Rate Blood Pressure 97/64 140/78 145/76 O2 Sat by Pulse 96 96 98 Oximetry - Labs CBC & Chem 7: 03/10/18 09:34 03/08/18 15:38 Labs: Abnormal lab results 03/08/18 03/10/18 03/10/18 Range/Units 16:36 05:34 05:34 WBC 4.0 L (4.5-11.0) K/mm3 RBC 2.72 L (3.65-5.03) M/mm3 Hgb 6.2 L (10.1-14.3) gm/dl Hct 20.0 L (30.3-42.9) % MCV 74 L (79-97) fl MCH 23 L (28-32) pg RDW 22.1 H (13.2-15.2) % Seg Neuts % (Manual) 85.0 H (40.0-70.0) % Lymphocytes % (Manual) 9.0 L (13.4-35.0) % Nucleated RBC % 9.0 H (0.0-0.9) % Lymphocytes # (Manual) 0.4 L (1.2-5.4) K/mm3 TIBC 240 L (250-450) mcg/dL Crossmatch See Detail 03/10/18 Range/Units 09:34 WBC (4.5-11.0) K/mm3 RBC (3.65-5.03) M/mm3 Hgb 7.0 L (10.1-14.3) gm/dl Hct 23.5 L (30.3-42.9) % MCV (79-97) fl MCH (28-32) pg RDW (13.2-15.2) % Seg Neuts % (Manual) (40.0-70.0) % Lymphocytes % (Manual) (13.4-35.0) % Nucleated RBC % (0.0-0.9) % Lymphocytes # (Manual) (1.2-5.4) K/mm3 TIBC (250-450) mcg/dL Crossmatch
[2018-03-10] MEDS: NACL 0.9% 1000 ML 1,000 ML IV SCH (21:13)
[2018-03-10] MEDS: TYLENOL PO PRN (21:13)
[2018-03-11 08:56] LABS: Hemoglobin 6.9 gm/dl (10.1-14.3); Mean Corpuscular HGB Conc 30 % (30-34); Mean Corpuscular Volume 76 fl (79-97); Platelet Count 165 K/mm3 (140-440); Red Blood Count 3.03 M/mm3 (3.65-5.03)
[2018-03-11 08:57] LABS: Mean Corpuscular Hemoglobin 23 pg (28-32); Red Cell Distribution Width 21.8 % (13.2-15.2)
[2018-03-11] MEDS: FEOSOL PO SCH ×2 (10:49→22:03)
[2018-03-11] MEDS: SODIUM CHLORIDE FLUSH SYRINGE 10 ML IV SCH ×2 (10:50→22:02)
[2018-03-11] MEDS: PROTONIX PO SCH ×2 (10:50→22:03)
--- NOTE | 2018-03-11 11:05 | Gastroenterology Progress Note ---
Assessment and Plan 1. Iron deficiency anemia - s/p egd (erosive gastritis in gastric pouch) and colonoscopy. h/o gastric bypass which is likely main etiology of SIXTO. no overt bleeding. consider IV iron as po may be inadequately absorbed given her anatomy. instructed to d/c nsaid's at home. will sign off, please call as needed or with questions. Subjective Date of service: 03/11/18 Principal diagnosis: iron deficiency anemia Interval history: pt seen and examined. no new gi complaints. on po iron and states stools have been dark since taking this. otherwise no signs of overt bleeding. tolerating po. Objective - Constitutional Vitals: Temp Pulse Resp BP Pulse Ox 99.4 F 79 18 119/64 95 03/11/18 06:02 03/11/18 06:02 03/11/18 06:02 03/11/18 06:02 03/11/18 06:02 General appearance: no acute distress, obese - Respiratory Respiratory effort: normal Respiratory: bilateral: CTA - Cardiovascular Rhythm: regular Heart Sounds: Present: S1 & S2 - Gastrointestinal General gastrointestinal: Present: non-tender, non-distended - Neurologic Neurological: alert and oriented x3 - Labs CBC & Chem 7: 03/11/18 08:01 03/08/18 15:38 Labs: Laboratory Results - last 24 hr 03/08/18 03/11/18 16:36 08:01 WBC 3.9 L RBC 3.03 L Hgb 6.9 L Hct 23.0 L MCV 76 L MCH 23 L MCHC 30 RDW 21.8 H Plt Count 165 Blood Type A POSITIVE Antibody Screen Negative Crossmatch See Detail
[2018-03-11] MEDS ORDERED: NACL 0.9% 500 ML 500 ML IV NR (13:03)
[2018-03-11 13:35] LABS: Total Cells Counted 100
[2018-03-11 13:36] LABS: Anisocytosis 1+; Hypochromasia 1+; Platelet Estimate Consistent w Auto
[2018-03-11] MEDS: TYLENOL PO PRN (13:57)
--- NOTE | 2018-03-11 17:56 | Progress Note ---
Assessment and Plan /GI bleed Status post 2 units PRBC Transfusion, Continue PPI therapy, serial cbc, supportive care. GI consulted for further evaluation, s/p EGD and colonoscopy on 03/10 showed errosive gastritis /Hypertension, stable Monitor BP, will give hydralazine IV as needed /Symptomatic anemia, due to GI bleed likely due to erosive gastritis Status post 2 units PRBC transfusion, Hb 6.9 today, will transfuse another unit monitor hgb, iron replacement therapy / History of gastric bypass, supportive care / DVT prophylaxism: SCD to ble while in bed. Brief History: Patient is a 52 y/o female with PMH of HTN, morbid obesity, h/o PE several years ago (not on anticoagulation currently), s/p gastric bypass (2005), and medication non-compliance (took self off iron supplement and daily MVI due to constipation with no f/u with bariatric surgeon in 2 years) who presented to ED with c/o right knee pain associated with arthritis, discoloration/swelling of BLE, SOB, and generalized weakness/fatigue. Lower extremity DVT study negative. Chest CTA negative for PE. She was found to be anemic upon admission with H/H 6.7/22.0 with stool occult positive Radiological data: Lower extremity venous Doppler CTA chest Hospitalist Physical exam: GENERAL: well-developed female lying on bed appeared to be in no discomfort. HEENT: Normocephalic. Atraumatic. No conjunctival congestion or icterus. Patient has moist mucous membranes. NECK: Supple. Trachea midline. CHEST/LUNGS: Clear to auscultated bilaterally, breathing nonlabored. No wheezes crackles or rhonchi. HEART/CARDIOVASCULAR: Regular in rate and rhythm. S1 and S2 positive. ABDOMEN: Abdomen is soft, nontender. Patient has normal bowel sounds. SKIN: There is no rash. Warm and dry. NEURO: No focal motor deficit. Follows command. MUSCULOSKELETAL: No joint effusion or tenderness. EXTRIMITY: No edema, no cyanosis or clubbing. PSYCH: Cooperative. Subjective Date of service: 03/11/18 Principal diagnosis: iron deficiency anemia Interval history: Patient seen and examined. Medical records and medication list reviewed. No acute event overnight noted by the RN. s/p EGD and colonoscopy, Hb still 6.9 Discussed plan of care at bedside with patient. Objective - Constitutional Vitals: Vital Signs - 12hr 03/11/18 03/11/18 03/11/18 06:02 12:04 14:39 Temperature 99.4 F 99.4 F Pulse Rate 79 72 72 Respiratory 18 20 16 Rate Blood Pressure 119/64 145/79 142/73 O2 Sat by Pulse 95 99 100 Oximetry 03/11/18 03/11/18 14:45 14:59 Temperature 98.1 F 98.3 F Pulse Rate 72 70 Respiratory 16 16 Rate Blood Pressure 142/73 147/82 O2 Sat by Pulse 100 Oximetry - Labs CBC & Chem 7: 03/11/18 21:07 03/08/18 15:38 Labs: Abnormal lab results 03/08/18 03/11/18 Range/Units 16:36 08:01 WBC 3.9 L (4.5-11.0) K/mm3 RBC 3.03 L (3.65-5.03) M/mm3 Hgb 6.9 L (10.1-14.3) gm/dl Hct 23.0 L (30.3-42.9) % MCV 76 L (79-97) fl MCH 23 L (28-32) pg RDW 21.8 H (13.2-15.2) % Seg Neuts % (Manual) 83.0 H (40.0-70.0) % Lymphocytes % (Manual) 10.0 L (13.4-35.0) % Nucleated RBC % 13.0 H (0.0-0.9) % Lymphocytes # (Manual) 0.4 L (1.2-5.4) K/mm3 Crossmatch See Detail
[2018-03-11 21:21] LABS: Hematocrit 26.8 % (30.3-42.9); Hemoglobin 8.2 gm/dl (10.1-14.3)
[2018-03-11] MEDS: NACL 0.9% 1000 ML 1,000 ML IV SCH (22:02)
[2018-03-12 10:59] LABS: Hematocrit 27.4 % (30.3-42.9); Hemoglobin 8.2 gm/dl (10.1-14.3)
[2018-03-12] MEDS: FEOSOL PO SCH (11:18)
[2018-03-12] MEDS: SODIUM CHLORIDE FLUSH SYRINGE 10 ML IV SCH (11:18)
[2018-03-12] MEDS: PROTONIX PO SCH (11:18)
--- NOTE | 2018-03-12 13:40 | Discharge Summary ---
Providers - Providers Date of Admission: 03/08/18 19:07 Date of discharge: 03/12/18 Attending physician: HUMA MARTINS 03/08/18 18:54 Consult to Physician [CONS] Urgent Comment: Consulting Provider: KAELA CHIRINOS Physician Instructions: Reason For Exam: gi bleed 03/08/18 20:15 Consult to Case Management [CONS] Routine Services Needed at Discharge: Chiller Operator Notified:: harsh Primary care physician: [facility] Hospitalization Condition: Good Procedures: /GI bleed Status post 3 units PRBC Transfusion, Continue PPI therapy, serial cbc, supportive care. GI consulted for further evaluation, s/p EGD and colonoscopy on 03/10 showed errosive gastritis /Hypertension, stable Monitor BP, will give hydralazine IV as needed /Symptomatic anemia, due to GI bleed likely due to erosive gastritis Status post 3 units PRBC transfusion, Given iron replacement before discharge / History of gastric bypass, supportive care / DVT prophylaxism: SCD to ble while in bed. Brief History: Patient is a 52 y/o female with PMH of HTN, morbid obesity, h/o PE several years ago (not on anticoagulation currently), s/p gastric bypass (2005), and medication non-compliance (took self off iron supplement and daily MVI due to constipation with no f/u with bariatric surgeon in 2 years) who presented to ED with c/o right knee pain associated with arthritis, discoloration/swelling of BLE, SOB, and generalized weakness/fatigue. Lower extremity DVT study negative. Chest CTA negative for PE. She was found to be anemic upon admission with H/H 6.7/22.0 with stool occult positive Radiological data: Lower extremity venous Doppler CTA chest Hospitalist Physical exam: GENERAL: well-developed female lying on bed appeared to be in no discomfort. HEENT: Normocephalic. Atraumatic. No conjunctival congestion or icterus. Patient has moist mucous membranes. NECK: Supple. Trachea midline. CHEST/LUNGS: Clear to auscultated bilaterally, breathing nonlabored. No wheezes crackles or rhonchi. HEART/CARDIOVASCULAR: Regular in rate and rhythm. S1 and S2 positive. ABDOMEN: Abdomen is soft, nontender. Patient has normal bowel sounds. SKIN: There is no rash. Warm and dry. NEURO: No focal motor deficit. Follows command. MUSCULOSKELETAL: No joint effusion or tenderness. EXTRIMITY: No edema, no cyanosis or clubbing. PSYCH: Cooperative. Disposition: DC-01 TO HOME OR SELFCARE Time spent for discharge: 32 minutes Core Measure Documentation - Palliative Care Palliative Care/ Comfort Measures: Not Applicable - Core Measures Any of the following diagnoses?: none Exam - Constitutional Vitals: Temp Pulse Resp BP Pulse Ox 98.5 F 65 20 182/91 98 03/12/18 12:53 03/12/18 12:53 03/12/18 12:53 03/12/18 12:53 03/12/18 12:53 Plan Activity: advance as tolerated Weight Bearing Status: Weight Bear as Tolerated Diet: low fat, low salt Additional Instructions: f/u with PCP in one week Follow up with: PRIMARY CAREMD [Primary Care Provider] - 3-5 Days Prescriptions: Pantoprazole [Protonix TAB] 40 mg PO BID #60 tablet
[2018-03-12] MEDS ORDERED: VENOFER 100 MG in NACL 0.9% 50 ML IV ONE (14:00)
[2018-03-12] MEDS ORDERED: FERRLECIT 125 MG in NACL 0.9% 100 ML IV ONE (14:00)
--- NOTE | 2018-03-12 15:45 | Vascular Lab Report ---
LOWER EXTREMITY VENOUS DUPLEX: REASON FOR EXAM: The. COMMENTS ON THE RIGHT: All veins visualized are freely compressible without evidence of internal echogenicity. Flow is spontaneous and phasic throughout. A soft tissue change in the right knee area is consistent with a Flores's cyst. COMMENTS ON THE LEFT: All veins visualized are freely compressible without evidence of internal echogenicity. Flow is spontaneous and phasic throughout. A soft tissue change in the left knee area is consistent with a Flores's cyst. IMPRESSION: No evidence of acute or chronic deep venous thrombosis in either lower extremity. A soft tissue change in the right knee area is consistent with a Flores's cyst. A soft tissue change in the left knee area is consistent with a Flores's cyst.
[2018-03-12 17:02] VITALS: BP 147/84
== END 2018-03-12 17:30 | disposition home or self-care (01) | DRG 393 ==
LOC: ED 15:02 → 3A 19:07
PROVIDERS: ADMIT Internal Medicine; ATTEND Internal Medicine
PROC: 30233N1 Transfusion of Nonautologous Red Blood Cells into Peripheral Vein, Percutaneous Approach (ICD-10-PCS; 2018-03-09)
PROC: 0DJ08ZZ Inspection of Upper Intestinal Tract, Via Natural or Artificial Opening Endoscopic (ICD-10-PCS; principal; 2018-03-10)
PROC: 0DJD8ZZ Inspection of Lower Intestinal Tract, Via Natural or Artificial Opening Endoscopic (ICD-10-PCS; 2018-03-10)
DX: K64.8 Other hemorrhoids (principal); K29.01 Acute gastritis with bleeding; E66.2 Morbid (severe) obesity with alveolar hypoventilation; I10 Essential (primary) hypertension; M17.11 Unilateral primary osteoarthritis, right knee; M79.89 Other specified soft tissue disorders; D50.9 Iron deficiency anemia, unspecified; Z82.49 Family history of ischemic heart disease and other diseases of the circulatory system; Z68.39 Body mass index [BMI] 39.0-39.9, adult; Z98.84 Bariatric surgery status; Z86.711 Personal history of pulmonary embolism; Z72.89 Other problems related to lifestyle
CPT/HCPCS: 36415; 36430; 71046; 71275; 80048; 82271; 82728; 82962; 83550; 83880; 84484; 85007; 85014; 85018; 85025; 85027; 85379; 85610; 85730; 86850; 86900; 86901; 86920; 93005; 93010; 93970; C9113; J1200; J1756; J2704; J2916; J3010; J7030; J7040; P9016; Q0177; Q9967

== ENCOUNTER 2019-11-09 02:52 | Emergency (ER) | payer OTHER ==
--- NOTE | 2019-11-09 03:14 | Emergency Department Report ---
ED General Adult HPI - General Chief complaint: Cardiac Arrest/CPR Stated complaint: CARDIAC ARREST Time Seen by Provider: 11/09/19 03:08 Source: patient Mode of arrival: Stretcher Limitations: No Limitations - History of Present Illness Initial comments: 54 y.o. female with a history of alcohol abuse, cirrhosis, and recent discharge after being admitted for anemia and altered mental status and discharged on November 05, 2019 from this hospital presents in cardiac arrest. Family member states her last seen normal was 1 hour ago. Patient was found down and EMS arrived and intubated the patient. Patient received CPR for 30 minutes prior to arrival here in emergency department. Patient received 4 rounds of epinephrine as well as dextrose as she was noted to have a low blood sugar as well. Patient remained without a pulse throughout the entire code situation. - Related Data Home Medications Medication Instructions Recorded Confirmed Last Taken hydrOXYzine HCL [Atarax] 25 mg PO Q6HR PRN 10/10/19 10/28/19 Unknown Docusate Sodium [Colace CAP] 1 cap PO DAILY 10/28/19 10/28/19 Unknown Previous Rx's Medication Instructions Recorded Last Taken Type Pentoxifylline [TRENtal] 400 mg PO TID #90 tablet 10/13/19 Unknown Rx oxyCODONE [roxiCODONE] 1 tab PO Q4H PRN #25 tablet 10/13/19 Unknown Rx predniSONE [Deltasone] 1 dose PO QDAY 28 Days #70 tab 10/13/19 Unknown Rx Lactulose [Cephulac] 20 gm PO BID 30 Days #30 oral.liqd 11/04/19 Unknown Rx Midodrine [Proamatine] 10 mg PO TID@0800,1200,1600 #90 11/04/19 Unknown Rx tablet Multivitamin Tab W-MINERAL 1 each PO QDAY #30 tablet 11/04/19 Unknown Rx [Multiple Vitamin/Mineral (Theragran M)] Ondansetron [Zofran Odt] 4 mg PO Q4H PRN #30 tab.rapdis 11/04/19 Unknown Rx Pantoprazole [Protonix TAB] 40 mg PO QDAY #30 tablet 11/04/19 Unknown Rx Sodium Bicarbonate 650 mg PO BID #20 tablet 11/04/19 Unknown Rx Allergies Allergy/AdvReac Type Severity Reaction Status Date / Time No Known Allergies Allergy Verified 03/02/20 22:07 ED Review of Systems ROS: Stated complaint: CARDIAC ARREST Other details as noted in HPI Comment: Unresponsive ED Past Medical Hx - Past Medical History Previous Medical History?: Yes Hx Hypertension: Yes Hx Heart Attack/AMI: No Hx Congestive Heart Failure: Yes Hx Diabetes: No Hx Deep Vein Thrombosis: No Hx Pulmonary Embolism: Yes (10 years ago) Hx Liver Disease: Yes Hx Renal Disease: Yes (acute renal) Hx Sickle Cell Disease: No Hx Arthritis: Yes Hx Seizures: No Hx Asthma: No Hx COPD: No Additional medical history: Gastric bypass 2005 and developed a PE was on coumadin. But states no clots now. liver cirrohosis - Surgical History Past Surgical History?: Yes Hx Pacemaker: No Hx Internal Defibrillator: No Additional Surgical History: Gastric bypass. - Social History Smoking Status: Never Smoker Substance Use Type: Alcohol - Medications Home Medications: Home Medications Medication Instructions Recorded Confirmed Last Taken Type hydrOXYzine HCL [Atarax] 25 mg PO Q6HR PRN 10/10/19 10/28/19 Unknown History Pentoxifylline [TRENtal] 400 mg PO TID #90 tablet 10/13/19 10/28/19 Unknown Rx oxyCODONE [roxiCODONE] 1 tab PO Q4H PRN #25 tablet 10/13/19 10/28/19 Unknown Rx predniSONE [Deltasone] 1 dose PO QDAY 28 Days #70 tab 10/13/19 10/28/19 Unknown Rx Docusate Sodium [Colace CAP] 1 cap PO DAILY 10/28/19 10/28/19 Unknown History Lactulose [Cephulac] 20 gm PO BID 30 Days #30 oral.liqd 11/04/19 Unknown Rx Midodrine [Proamatine] 10 mg PO TID@0800,1200,1600 #90 11/04/19 Unknown Rx tablet Multivitamin Tab W-MINERAL 1 each PO QDAY #30 tablet 11/04/19 Unknown Rx [Multiple Vitamin/Mineral (Theragran M)] Ondansetron [Zofran Odt] 4 mg PO Q4H PRN #30 tab.rapdis 11/04/19 Unknown Rx Pantoprazole [Protonix TAB] 40 mg PO QDAY #30 tablet 11/04/19 Unknown Rx Sodium Bicarbonate 650 mg PO BID #20 tablet 11/04/19 Unknown Rx ED Physical Exam - General Limitations: No Limitations General appearance: other (Unresponsive) - Head Head exam: Present: atraumatic, normocephalic - Eye Eye exam: Present: other (Fixed and dilated) Pupils: Present: other (Scleral icterus) - ENT ENT exam: Present: mucous membranes dry, other (ET tube emanating from the oropharynx) - Neck Neck exam: Absent: full ROM - Respiratory Respiratory exam: Present: other (Breath sounds solely appreciated with [id number] ventilation) - Cardiovascular Cardiovascular Exam: Present: other ( ) - GI/Abdominal GI/Abdominal exam: Present: distended (Moderate distention) - Neurological Exam Neurological exam: Present: other (Unresponsive; not moving upper or lower extremities) ED Medical Decision Making - Medical Decision Making Patient received 2 rounds of epinephrine as well as bicarb and D50 while here in emergency department. Patient received continuous CPR. Despite the interventions that patient received while here in emergency department she did not have return of spontaneous circulation and code was called at 2:55 AM. - Differential Diagnosis Cardiac arrest; respiratory arrest Critical care attestation.: If time is entered above; I have spent that time in minutes in the direct care of this critically ill patient, excluding procedure time. ED Disposition Clinical Impression: Cardiac arrest Disposition: DC-20 Is pt being admited?: No Condition: Stable Referrals: VALERIE ARZATE MD [Primary Care Provider] - 3-5 Days Time of Disposition: 03:19
[2019-11-09] MEDS ORDERED: SODIUM BICARB 8.4% 50 MEQ/50 ML VIAL IV ONE (22:47)
[2019-11-09] MEDS ORDERED: EPINEPHrine 1:10,000 1 MG/10 ML SYRINGE ONE (22:47)
[2019-11-09] MEDS ORDERED: DEXTROSE 50% IN WATER (25GM) 50 ML SYRINGE IV ONE (22:47)
== END 2019-11-09 06:00 ==
LOC: ED 02:52
DX: I46.9 Cardiac arrest, cause unspecified (principal); I11.0 Hypertensive heart disease with heart failure; I50.9 Heart failure, unspecified; K76.9 Liver disease, unspecified; N28.9 Disorder of kidney and ureter, unspecified; M19.91 Primary osteoarthritis, unspecified site; Z86.711 Personal history of pulmonary embolism; Z98.890 Other specified postprocedural states; Z79.899 Other long term (current) drug therapy
CPT/HCPCS: 92950; 99285; J0171